=== PATIENT | female | born 1960 | race African-American/Black ===

== ENCOUNTER 2019-06-18 20:25 | Inpatient (IN) | payer OTHER ==
[~2019-06-18] VITALS: Ht 167.6 cm; Wt 79.0 kg
--- NOTE | ~2019-06-18 | EKG ---
[facility] [place] [address] ELECTROCARDIOGRAM REPORT Name: CHERELLELILIYA Room #: [facility] ADM IN M.R.#: [id number] Admission: 06/18/19 Attend Phys: John Watts DO Discharge: Date of : 56 Report #: [id number] THIS REPORT FOR: cc: FAM - No family physician/PCP FAM - No family physician/PCP Kalyn Mccain MD ~ THIS REPORT FOR: //name// [facility] Test Date: 2019-06-19 Test Time: 17:19:59 Pat Name: LILIYA VILLARREAL Department: Room: [facility] Gender: F Plumbing And Heating Contractor: Sal PEACE : 1960 Requested By: John Watts Order Number: [id number] MD: Measurements Intervals [place] Rate: 65 P: 54 MT: 127 QRS: -8 QRSD: 109 T: 45 QT: 400 QTc: 416 Interpretive Statements Sinus arrhythmia RSR' in V1 or V2, right VCD or RVH Left ventricular hypertrophy No previous ECG available for comparison Electronically Signed On 06-20-2019 7:58:33 SCALDER by Adarsh Piper [email or web address] By: 18 18 Epiphany Epiphany, /EB
[2019-06-18] MEDS ORDERED: FENTANYL1 EAC2 TRANSDERM (23:26)
[2019-06-18] MEDS ORDERED: FUROSEMIDE 40 M40 MG PO (23:27)
[2019-06-18] MEDS ORDERED: LACTULOSE10 GM/152 PO (23:30)
[2019-06-18] MEDS ORDERED: LORAZEPAM 1 MG T1 MG PO (23:31)
[2019-06-18 23:40] VITALS: BP 115/67
[2019-06-18] MEDS ORDERED: PREDNISONE 5 MG5 M1 PO (23:57)
[2019-06-18] MEDS ORDERED: K-DUR 20 MEQ T20 MEQ PO (23:57)
[2019-06-18] MEDS ORDERED: OXYBUTYNIN 5 MG5 M2 PO (23:59)
[2019-06-19] MEDS ORDERED: TRAZODONE HCL50 MG PO (00:01)
[2019-06-19] MEDS ORDERED: MIRALAX119 GM PO (00:02)
[2019-06-19] MEDS ORDERED: HALDOL 0.5 MG0.5 MG PO (00:03)
[2019-06-19] MEDS ORDERED: DRIZALMA SPRINK30 MG PO (00:04)
[2019-06-19 00:20] VITALS: BP 115/67
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
--- NOTE | 2019-06-19 03:50 | NUR ---
PATIENT IS FINALLY SLEEPING. NO CALLING OUT AT THIS TIME. BED IN LOW POSITION AND BED ALARM ON. CONTINUING TO MONITOR.
[2019-06-19 06:25] LABS: CALCIUM 8.7 mg/dL (8.5-10.1); CREATININE 0.7 mg/dL (0.6-1.0); MAGNESIUM 1.5 mg/dL (1.8-2.4); POTASSIUM 3.7 mmol/L (3.5-5.1)
[2019-06-19 07:09] LABS: FOLIC ACID 17.1 ng/mL (8.6-58.9); TSH 2.326 uIU/mL (0.358-3.740)
[2019-06-19 08:00] VITALS: BP 110/74
[2019-06-19 09:06] VITALS: BP 110/74
--- NOTE | 2019-06-19 14:10 | NUR ---
Nutrition: pt admitted with neurocognitive disorder with behavioral disturbance/aggression to H unit. Notified of low varun score. Pt new admit last night. Refused breakfast, ate a little lunch. Nsg reports he thinks she will drink juice so will offer ensure clear on all trays. No weight hx available. BMI 29, overweight status. No wasting observed. Does have healed venous stasis ulcer on her king. NH3 76, on lactulose. RD will monitor nutritional parameters for intervention need but consider low risk at present.
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
--- NOTE | 2019-06-19 17:24 | NUR ---
Assumed care of patient this am. Patient is difficult to understand when speaking. Patient ambulates with a wheel chair. Patient is very suspicious, and believes that this establishment is trying to kill her. Patient is noncompliant with medications. Patients affect is tense and flat. Patient refused her medications today. Patients assessment shows clear breath sounds, active bowel sounds, and s1 s2 heard with auscultation. Patient reports seeing family members in her room. Patient also reports that the devil is here. We will continue to monitor.
[2019-06-19 19:15] VITALS: BP 144/72
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
--- NOTE | 2019-06-20 04:24 | NUR ---
ASSUMED CARE OF THIS PATIENT FOR WAX SPECIALIST AT 1900. MOOD AND AFFECT LABILE. QUITE PARANIOD. VISUAL HALLUCINATIONS. THINKS THERE ARE PEOPLE IN HER ROOM WHO INTEND TO HARM HER. REFUSED ALL EVENING MEDS EVEN WITH MUCH ENCOURAGEMENT. SLEPT THROUGH MUCH OF NIGHT. ONCE IN A WHILE WOULD CRY OUT IN HER SLEEP. WILL CONTINUE TO MONITOR
[2019-06-20 07:30] VITALS: BP 121/61
--- NOTE | 2019-06-20 07:30 | NUR ---
Assumed care of patient this am. Patient up in a wheelchair. Patient appears to be seeing people in her room and states in a whisper "Can you see the people on my bed?" Patient is very labile. Patient refused all of her meds and states that the RN is "trying to kill me with fake pills". Patients assessment shows clear breath sounds, active bowel sounds, and s1 s2 heard with auscultation. Patient has yelling behaviors intermittently. Patient denies pain. Will continue to monitor.
--- NOTE | 2019-06-20 07:59 | EKG ---
[address] [address] ELECTROCARDIOGRAM REPORT Name: LILIYA VILLARREAL Room #: [facility] ADM IN M.R.#: [id number] Admission: 06/18/19 Attend Phys: John Watts DO Discharge: Date of : 56 Report #: [id number] THIS REPORT FOR: //name// [facility] Test Date: 2019-06-19 Test Time: 17:19:59 Pat Name: LILIYA VILLARREAL Department: Room: [facility] Gender: F Solar Sales Representative: Sal PEACE : 1960 Requested By: John Watts Order Number: [id number] MD: Adarsh Piper Measurements Intervals [place] Rate: 65 P: 54 IA: 127 QRS: -8 QRSD: 109 T: 45 QT: 400 QTc: 416 Interpretive Statements Sinus arrhythmia RSR' in V1 or V2, right VCD or RVH Left ventricular hypertrophy No previous ECG available for comparison Electronically Signed On 06-20-2019 7:58:33 METAL ORGAN PIPE MAKER by Adarsh Piper [email or web address] <ELECTRONICALLY SIGNED> By: Adarsh Piper MD 06/20/19 0758 [id number] [id number] Adarsh Piper MD /EPI
[2019-06-20 08:00] VITALS: BP 121/61
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
[2019-06-21 07:55] VITALS: BP 117/77
[2019-06-21 08:30] VITALS: BP 117/77
--- NOTE | 2019-06-21 08:34 | NUR ---
PT REFUSING MEDS THIS AM, ANOTHER NURSE ENCOURAGED HER TO TAKE HER MEDS FOR HER LEGS THAT HAVE +3 EDEMA TO LLE. PT AGREED TO TAKE MEDS FOR THIS NURSE. MEDS CRUSHED AND PUT IN PUDDING PT TOOK WITHOUT ANY ISSUES. ATTEMPTED TO CRUSH K AND VIT D. PT SPIT OUT ON TABLE. PT PLACED IN RECLINER AND FEET ELEVATED. PT HAS EDEMA +3 TO LLE AND +2 TO RLL.
--- NOTE | 2019-06-21 12:38 | NUR ---
PT DID TAKE MEDS WITH ENCOURAGEMENT FROM ANOTHER NURSE. PT TOOK MEDS WHOLE. NO PROBLEMS.
--- NOTE | 2019-06-21 14:29 | NUR ---
SEEMS LIKE PT YELLS AT AND STATED GET AWAY FROM ME. WHEN PT IS APPROACHED BY PT DOESN'T YELL AT THEM. SHAUNNA CLEANING WAS FOUND IN CHAIR WHEN PT GOT UP TO BSC FOR SMALL PEBBLE BM. PT GETTING READY TO GET US OF LE.
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
[2019-06-22 07:10] VITALS: BP 90/56
[2019-06-22 07:46] LABS: CALCIUM 9.2 mg/dL (8.5-10.1); CREATININE 0.7 mg/dL (0.6-1.0); POTASSIUM 3.9 mmol/L (3.5-5.1)
--- NOTE | 2019-06-22 08:30 | NUR ---
PT RESTING AT THIS TIME. PT DIDN'T HAVE ANY SLEEP YESTERDAY EVENING. PT VS STABLE.
[2019-06-22 09:00] VITALS: BP 90/56
--- NOTE | 2019-06-22 11:59 | NUR ---
SW sent updates to [facility] [phone]. SW team will continue to follow pt during her stay on this unit.
--- NOTE | 2019-06-22 13:48 | NUR ---
PT RESTING IN BED AT THIS TIME. PT HAS NOT HAD BREAKFAST OR LUNCH.
--- NOTE | 2019-06-22 15:30 | NUR ---
PT IS UP AT THIS TIME, PT HAD X2 INCON. LARGE URINE AND HAVE SOME MUCOUS IN HER MOUTH.
--- NOTE | 2019-06-22 15:51 | NUR ---
PT MEDS CRUSHED AND PUT IN APPLESAUCE. PT WAS SAYING SHE WASN'T TAKEN THAT SHIT THAT SHE TAKES PILLS NOT CRUSHED. TOOK SOME APPLESAUCE OUT AND GOT A NEW SPOON. PT TOOK MEDS AND HAD WHOLE APPLESAUCE. PT RAISE HAND TOWARDS NURSE SAYING GET AWAY FROM ME.
--- NOTE | 2019-06-22 16:13 | NUR ---
PT REQUEST A LAXATIVE, WHEN GIVING PT LAXATIVE PT DIDN'T WANT IT. PT WANTED TO TAKE IT HERSELF. PT DID TAKE MOM 10ML PO IN LITTLE MED CUP AND DRANK IT.
--- NOTE | 2019-06-22 17:00 | NUR ---
PT DID HAVE YELLOW THICK SPUTUM IN CUP. PT SMILING AT NURSE AND LAUGHING. PT STATED SHE WAS READY TO GO TO DINNING ROOM. PT ABLE TO SWING HER LEGS AROUND AND GET UP WITH ASSIST TO W/C. PT NOT SCREAMING AT THIS TIME OR NOT COMBATIVE.
[2019-06-22 19:51] VITALS: BP 120/77
[2019-06-22 21:45] VITALS: BP 120/77
--- NOTE | 2019-06-23 01:42 | NUR ---
PATIENT VERY LABILE IN MOODS TONIGHT. SHE DID EAT ICECREAM WITH HER MEDS UNKNOWINGLY CRUSHED IN IT FOR HS SNACK. PATIENT HAD INCONTINENT CARE DONE AND ASSISTED TO BED. PATIENT DOES NOT LIKE TO BE TOUCHED OR BOTHERED. SHE DOES HAVE CHRONIC BACK PAIN. SHE FOUGHT WHEN THEY WERE TRYING TO TAKE HER VITALS TONIGHT. HER PULSE WAS 123. CHECKED PULSE AGAIN AFTER RESTING IN BED FOR A WHILE AND SHE AWOKE AND YELLED FOR ME TO GET OUT. HER PULSE WAS 90. PATIENT HAD ALOT OF THICK MUCUS AFTER EATING THE ICE CREAM AND WAS SPITTING OUT THICK CLEAR MUCUS WHEN IN BED. I RAISED HOB FOR HER AND GAVE HER DRINK OF WATER. HER LUNGS ARE CLEAR BUT DIMINISHED AND SHE HAS LOOSE CONGESTION IN HER THROAT AREA. HER LEFT LE IS WITH EDEMA 4+. HER RIGHT LE IS 3+. PATIENT YELLS OUT OFF AND ON FOR WHAT SHE WANTS AND THEN WHEN YOU GO TO GIVE HER WHAT SHE WANTS SHE YELLS FOR YOU TO GET OUT OF ROOM AND LEAVE HER ALONE. PATIENT HAS FENTANYL PATCH TO LEFT MID BACK FOR HER CHRONIC BACK PAIN. INCONTINENCE CHECKS BEING DONE. PATIENT IS COMBATIVE WITH CARES. SHE IS VERY ANGRY AND HOSTILE AND CAN BE VERBALLY ABUSIVE. BED IN LOW POSITION AND BED ALARM ON. NO SIGNS OF DISTRESS OR SOA. WILL CONTINUE TO MONITOR.
--- NOTE | 2019-06-23 06:32 | NUR ---
PATIENT VOMITED UP WHAT LOOKS LIKE HER SUPPER FOOD. CLEANED PATIENT UP AND CHECKED VITALS AGAIN. T 99.1AXILLARY, P90 R18 BP 110/57 02 96%. NO RESPIRATORY DISTRESS. PRODUCING LOTS OF SALIVA. PROBABLY FROM NAUSEA. WILL GIVE ZOFRAN PRN IF PATIENT WILL TAKE. PT TAKING SIP OF WATER AND KEEPING IT DOWN. LUNGS CLEAR BUT DIMINISHED. HOB UP. CALLED DAYNE GAMBLE AND NOTIFIED HER OF ABOVE. NO NEW ORDERS AT THIS TIME. PATIENT STILL COMBATIVE WITH CARES. EVS CALLED TO MOP AND SANITIZE FLOOR AND BED WHERE PT VOMITED. KEEPING PT COMFORTABLE.
[2019-06-23 10:00] VITALS: BP 121/75
[2019-06-23 10:36] VITALS: BP 121/75
[2019-06-23 12:35] LABS: HEMATOCRIT 34.4 % (37.0-47.0); HEMOGLOBIN 11.7 gm/dL (12.0-15.0); MCH 30.9 pg (26.0-34.0); MCV 90.8 fL (80.0-100.0); RBC 3.78 mil/uL (4.20-5.00); RDW 13.9 % (10.5-14.5); WBC 8.1 thou/uL (4.0-11.0)
[2019-06-23 12:41] LABS: CALCIUM 8.8 mg/dL (8.5-10.1); CREATININE 0.8 mg/dL (0.6-1.0); POTASSIUM 3.9 mmol/L (3.5-5.1)
--- NOTE | 2019-06-23 16:19 | NUR ---
assumed care at 0700. Pt sleepingin the room. Has vomited several times through out the day. The vomit has bile green. Dr. Jeri Watts aware of what is going on. New medication ordered for nausea and vomiting. Iv started and fluid running at 100mls/hr. Pt NPO at hte moment to rest her bowels. Blood labs ordered and the ddoctor went through them with the nurse. Noo more new orders. Will continue to observe and get back to the doctor before end of the shift. Patient relaxing in bed. Pt gets so agitated by care givers no matter what you are doing to her. She screems out loud when asking for somehting and she is verbally abusive to the Rn all day. Will continue to monitor.
[2019-06-23 19:38] VITALS: BP 133/72
--- NOTE | 2019-06-24 04:42 | NUR ---
1000ml of fluids completed. Dr kelly ordered to discontinue iv placement due to potential removal by pt. prn meds given im. pt has been on clear liquids diet and is tolerating fliuds well. no emesis yet as of the time of this note. pt is incont and was changed. pt slept well until about 0200 when pt suddenly woke to use the bathroom and started sreaming. pt was changed but kept on screaming for about 15mins after which she fell back asleep and has been sleeping since then. no s/s of distress. hob elevated. will cont to monitor
[2019-06-24 09:27] VITALS: BP 138/78
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
--- NOTE | 2019-06-24 11:41 | NUR ---
AT 1132 OLANZAPINE7.5 MG GIVEN IM FOR AGITATION. PATIENT REFUSED ROUTINE PO MED. PATIENT CONTINUES TO SCREAM AND YELL. H20 OFFERED STATES "YOU ARE TRYING TO POISON ME" WILL CONTINUE TO OFFER FLUIDS.
--- NOTE | 2019-06-24 14:43 | NUR ---
1430 ATIVAN 1MG IM GIVEN FOR AGITATION. WHEN FLIGHT TEACHER EXPLAINED MEDICATION TO PATIENT, PATIENT SAID OK. APPLE JUICE 118ML GIVEN TO PATIENT, NO NAUSEA OR VOMITING. PATIENT REQUEST WASH RAGS TO CLEAN UP REFUSES HELP. WILL CONTINUE TO MINITOR PATIENT FOR CHANGES IN CONDITION.
--- NOTE | 2019-06-24 16:34 | NUR ---
AT 1600 PATIENT RESTING QUIETLY WITH EYES CLOSED IN CHAIR IN ROOM. WILL CONTINUE TO MONITOR FOR CHANGES.
[2019-06-24 20:00] VITALS: BP 116/55
--- NOTE | 2019-06-25 07:31 | NUR ---
PROGRESS PT UP IN RECLINER ALL NIGHT YELLING OUT AT TIMES AND SLEEPING ON AND OFF. REFUSED ALL MEDS HAD ONE BITE OF ICE CREAM WITH SOME OF HER MEDS IN IT. PT IS ABLE TO MOVE RECLINER AROUND WITH HER FEET CONTINUES TO BE A FALL RISK. FALL PRECAUTIONS IN PLACE.
[2019-06-25 07:54] VITALS: BP 135/69
[2019-06-25 09:20] VITALS: BP 135/69
--- NOTE | 2019-06-25 09:47 | NUR ---
PT REFUSED AM MEDS AT THIS TIME. PT STATED SHE DON'T TAKE THOSE PILLS. ATTEMPTED TO GIVE MEDS CRUSHED IN CREAM OF WHEAT, PT REFUSING CREAM OF WHEAT. PT YELLING OUT IN DINING ROOM. PT IN RECLINER CHAIR.
--- NOTE | 2019-06-25 10:00 | NUR ---
PT RECIEVED HALDOL 5MG IM AT THIS TIME.
--- NOTE | 2019-06-25 12:15 | NUR ---
PT WANTING HER MEDICATION. SHOWED PT HER LORAZEPAM. PT DID TAKE MED WHOLE WITH APPLEJUICE. PT IN ROOM DUE TO YELLING OUT IN DINING ROOM.
--- NOTE | 2019-06-25 15:04 | NUR ---
PT YELLING AT PEOPLE NOT HERE. PT INTERUPTING GROUP TIME. I HAD LOTION ON MY COW AND PT WANTED TO HAVE SOME. PT USE TO RUB HANDS. PT LIKES TO LISTEN TO SOFT JAZZ MUSIC, NOT YELLING MUCH. DR. Claudia FERRIS.
--- NOTE | 2019-06-25 15:26 | NUR ---
ADM LORAZEPAM 1.5MG IM TO RT DELTOID. PT DIDN'T HAVE ANY ISSUES WITH SHOT ADM.
--- NOTE | 2019-06-25 15:32 | NUR ---
ANANYA contacted [facility] with [facility] to arrange for pt to discharge either Tue or . Craigmont was busy so ANANYA asked for a return call with the medical secretary receptionist. SW team will continue to follow pt during her stay on this unit.
[2019-06-25 20:26] VITALS: BP 164/89
[2019-06-25 21:30] VITALS: BP 164/89
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
[2019-06-26 08:40] VITALS: BP 149/85
--- NOTE | 2019-06-26 09:36 | NUR ---
PT IN ROOM WANTING TO GET CLEANED UP. PT VERY DEMANDING ABOUT HER CARE. PT WANT HER PERIAREA CLEANED AND BOTTOM, TOES AND FEET. PT WAS INCON. IN BED. PT GOT UP TO CHAIR. PT LEFT LOWER EXT IS NOT SWOLLEN AND SKIN HAS WRINKLES NOW. PT ABLE TO GET UP FROM BED AND TRANSFER TO RECLINER. PT TOOK WHITE PILL, LORAZEPAM FOR THIS MULTICUT LINE OPERATOR WITH APPLE JUICE. PT WANTING X2 APPLE JUICE AND WATER THIS AM.
[2019-06-26 09:40] VITALS: BP 149/85
--- NOTE | 2019-06-26 10:07 | NUR ---
Followup: Pt has been delusional, aggressive and yelling at staff. Medication being addressed. Intake has declined due to behavior and refusing some meals past several days. Ammonia level decreased then has increased again-on lactulose. Continue to offer supplement and will follow intake for improvement again as behaviors improve. No new wt since 06/19. low nutrition risk.
--- NOTE | 2019-06-26 11:45 | NUR ---
PT VOMITED BILE AND MUCOUS OUT IN DINNING ROOM. PT WHEELED BACK TO ROOM. PT WANTING ICE WATER, PT WANTING PAPER TOWEL IN BUCKET. PT STATED THAT THE SPIT IN THE BUCKET WAS NOT HERS. THIS ASSISTANT FACILITY MANAGER CLEANED BUCKET AND PUT FRESH PAPER TOWELS IN BOTTOM. GAVE PT TISSUES AND PT SAID IT WAS THE WRONG KIND OF TISSUE AND THROW IT ON THE FLOOR. PT YELLING AT INDIVIDUALS NOT THERE. BEING DEMANDING TO NURSE.
--- NOTE | 2019-06-26 12:31 | NUR ---
ADM MILK OF MAG FOR BOWELS. PT STATED SHE FIRST DIDN'T WANT TO TAKE IT AT FIRST. ENCOURAGED PT THAT IT WAS FOR HER BOWELS. PT DID TAKE THE MOM WITHOUT ANY ISSUES.
--- NOTE | 2019-06-26 17:48 | NUR ---
PT DIDN'T WANT GRAVY ON HER MASHED POTATOES. PT ATE POTATOES AND DRANK ENLIVE AND 2 APPLE JUICE. PT ALSO HAD SOME COFFEE. PT HAD LARGE VOID IN BSC. PT TRIED TO HAVE BM, PT UNSUCCESSFUL WITH BM. PT DID BELCH. TOLD PT THAT SHE HAS ORDER OF FLEETS ENEMA. PT STATED THAT WAS NOT FROM HER DR. PT STATED THAT WAS BULLSHIT. PT STATED SHE WILL TAKE IT WHEN SHE LYES DOWN TONIGHT, PT UP IN CHAIR.
--- NOTE | 2019-06-26 22:03 | NUR ---
PATIENT HAS BEEN UP IN RECLINER IN DINING ROOM THIS EVENING. SHE HAS BEEN YELLING OUT AND COMBATIVE. SHE REFUSED HER PO MEDS. SHE THREW APPLEJUICE ON A LINE THERAPIST. SHE WILL NOT ANSWER QUESTIONS ABOUT IF SHE IS IN PAIN. SHE SWINGS AT STAFF AND YELLS TO GO AWAY AND LEAVE HER ALONE. UNABLE TO GIVE PATIENT ENEMA SO FAR TONIGHT D/T COMBATIVE/AGGRESSIVE BEHAVIORS. SHE DID DRINK 3 APPLE JUICES TONIGHT. DAYNE GAINES NOTIFIED THAT PATIENT DID NOT TAKE HER MEDS TONIGHT. SHE GAVE NEW ORDER FOR HALDOL AND ALSO FOR ATIVAN 2MG IM Q4HRS ANXIETY/AGGITATION. DID NOT PUT PRN ORDER IN FOR THE HALDOL SINCE LOOKED AGAIN AND THERE WAS ALREADY ONE IN [place] FROM DR MAURICIO. PATIENT WAS GIVEN HALDOL 10MG IM AND ATIVAN 2MG IM IN RIGHT DELTOID. THIS TOOK 3 PEOPLE TO HOLD HER. 2 SECURITY GUARDS CALLED TO HELP PUT HER IN BED BECAUSE SHE WAS COMBATIVE AND YELLING AND HITTING/PUNCHING. PATIENT HAD INCONTINENCE CARES DONE AND WAS MADE COMFORTABLE SHE WOULD ALLOW US. SHE YELLS OUT AND TALKS TO SELF OFF AND ON AND BACK TO SLEEP. BED IN LOW POSITION AND BED ALARM ON. PATIENT RESTING.
[2019-06-26 22:34] VITALS: BP 149/85
--- NOTE | 2019-06-27 02:12 | NUR ---
PRN ATIVAN 2 mg. and HALDOL 5 mg. given IM for agitation and anxiety. No results noted from enema at time of injection.
[2019-06-27 09:09] VITALS: BP 156/85
--- NOTE | 2019-06-27 15:47 | NUR ---
Date of Admission: 06/18/19 Date of Activity Therapy Assessment: 06/22/19 Activity Goal: Development of trusting social relationships Initial Goal: 1 Group activity/day Weekly progress towards goal: Did not achieve goals Group participation level: None Behaviors observed: Patient's behaviors include yelling out at patients and staff, making threats, and at times swinging to hit them. Patient does not trust various staff and states they are, "trying to kill me." She has been unable to participate in groups d/t these behaviors. Plan: No change towards goal
--- NOTE | 2019-06-27 15:59 | NUR ---
1500 PATIENT REFUSED SCHEDULED PO ATIVAN. RIPSAWYER ATTEMPTED TO EXPLAIN TO PATIENT THAT IF PO IS NOT TAKEN, ATIVAN IM IS ORDERED. PATIENT STARTS TO YELL STATING "I WILL NOT TAKE THAT YELLOW PILL". ATIVAN 1MG IM GIVEN.
--- NOTE | 2019-06-27 16:48 | NUR ---
0700 ASSUMED CARE OF PATIENT. PATIENT SLEEPING AT THIS TIME IN BED. PATIENT CONTINUED TO SLEEP TILL 1124. PATIENT TELLING AT THIS TIME. OUT TO DAYROOM FOR LUNCH SITTING UP IN WC. PATIENT REFUSED PO MEDICATION. ATIVAN 1MG IM GIVEN PER DR ORDERS. PATIENT REFUSES TO ANSWER QUESTIONS AND STARTS YELLING AT LINSEED CAKE TRIMMER. LUNG SOUNDS CLEAR, NO C/O PAIN DENIES NEEDS REQUEST THAT LINSEED CAKE TRIMMER STAY AWAY FROM PATIENT.
--- NOTE | 2019-06-27 18:45 | NUR ---
PATIENT SITTING IN WC IN DAYROOM WITH EYES CLOSED AT THIS TIME.
[2019-06-27 19:47] VITALS: BP 133/70
--- NOTE | 2019-06-28 04:57 | NUR ---
ASSUMED CARE OF THIS PATIENT AT 1900 FOR SUEDE BRUSHER. SHE WAS SLEEPING IN CHAIR IN DAYROOM AT THAT TIME. REFUSED PO MEDS AND RECIEVED IM ATIVAN ORDERED. UNCOOPERATIVE WITH ASSESSMENT PROCESS. DID DENY PAIN THIS EVENING. NO C/O. NO APPARENT DISTRESS. WILL CONTINUE TO MONITOR
[2019-06-28 09:25] VITALS: BP 107/64
[2019-06-28 10:56] VITALS: BP 107/64
--- NOTE | 2019-06-28 11:13 | NUR ---
ASSUMED CARE AT 0700 THIS MORNING. SHE GOT UP IN W/C FOR MEALS ON THE UNIT. SHE CONTINUES TO YELL AT THE VOICES SHE HEARS AND THE DEVIL SHE SEES. SHE REFUSED MORNING MEDICATIONS TELLING THIS ONION TOPPER SHE WOULD RATHER HAVE THE SHOT. SHOT PREPARED AND GIVEN TO PT. (JOSY). SHE CONTINUED TO YELL OUT FOR A WHILE, BUT DID BECOME SOMEWHAT CALMER AFTER ABOUT 20 MINUTES. SHE HAS NOT BEEN STRIKING OUT BEHAVIOR NOTED THIS MORNING. SHE STATES SHE SEES THE DEVIL AND YELLS BACK AT HIM.
--- NOTE | 2019-06-28 17:25 | NUR ---
ANANYA contacted [facility] and spoke with Natalie (admin) who said pt is on a long acting drug called Invega. She was wondering if the psych doctor could increase her dosage. However, she mentioned pt did well with Haldol when she took it orally. She said pt is okay to return on 07/04/19. ANANYA contacted psych doctor who said he will change pt's meds to include a Haldol regularly scheduled IM. SW team will continue to follow pt during her stay on this unit.
[2019-06-28 19:42] VITALS: BP 131/89
--- NOTE | 2019-06-28 20:01 | NUR ---
Patient has been screaming and disturbing mileau since start of shift. Patient assisted to the bathroom with staff assist x3. Patient verbally aggressive and threatening to staff. Patient assisted to bed and provided quiet environment. Patient continues to yell and be disruptive and cursing. MD notified. Order obtained for STAT IM Haldol and Ativan. Medication provided. states that if patient is awake for scheduled HS medication, it is OK to provide those medications also.
--- NOTE | 2019-06-29 04:39 | NUR ---
ASSUMED CARE OF THIS PATIENT AT 1900 FOR FRONT DESK AGENT. HAS BEEN TALKING AND YELLING AT HER HALLUCINATIONS. PRN ORDER WAS EFFECTIVE. ROUTINE NIGHT MEDS WERE REFUSED AND PATIENT WAS SLEEPING, SO ATIVAN HELD. APPEARS TO HAVE SLEPT THROUGH THE NIGHT. UNCOOPERATIVE WITH ASSESSMENT PROCESS. NO C/O PAIN THIS SHIFT. WILL CONTINUE TO MONITOR
[2019-06-29 09:50] VITALS: BP 113/71
[2019-06-29 12:54] VITALS: BP 113/71
--- NOTE | 2019-06-29 13:04 | NUR ---
ASSUMED CARE AT 0700 THIS MORNING. SHE WAS IN BED WHEN SHIFT BEGAN. SHE WAS GOTTEN UP BY [employer] LAW CLERK'S. SHE REFUSED ORAL MORNING MEDICATIONS. SHE RECEIVED IM HALDOL 5 MG AND ATIVAN 1.5 MG PO IM. SHE ACCEPTED THIS WITHOUT PROBLEMS NOTED. AT LUNCH, SHE DID NOT LIKE THE SANDWICH THE KITCHEN SENT UP. SHE STARTED REQUESTING CHEERIOS, MILK SO SHE COULD EAT THAT. SHE ATE A BOWL OF CEREAL WITH MILK. THE WAS CORDIAL ABOUT THAT AND HANDED THIS RN THE EMPTY CONTAINERS POLITELY. SHE CONTINUES TO YELL FROM TIME TO TIME BUT NOT CONTINOUSLY.
--- NOTE | 2019-06-29 14:21 | NUR ---
ANANYA faxed a copy of an order from hospice to [facility]. The plan is still for pt to discharge on 07/04 @1100. SW team will continue to follow pt during her stay on this unit.
--- NOTE | 2019-06-29 22:49 | NUR ---
Care assumed of patient at 1915: Nurse entered room to introduce self and complete nursing assessment. Patient started to scream "F You, get out". Nurse brought apple juice which is a favorite of patient. Patient yelled "leave the juice, you go". No s/s of pain or discomfort. Nurse left room, patient intermittently yelling mumbled words but was not continuous. Attempted to have another nurse enter room to speak with patient and she told them to get out also. Nurse entered room later with HS medications and a snack. Patient demanding that she get up because she missed breakfast and it is nurses fault for not feeding her. Patient offered snack which she hit out of nurses hand. Patient shown HS medication. She attempted to hit it from nurses hand but was not successful. Patient educated as much as possible about need to take medications to be able to sleep, to feel better, to be able to go home. Non were effective. Nurse then reported that if she does not want to take her HS pills, nurse would have to give her a shot. Patient demanded to see the doctor. Oriented that it is night time and the doctor is not here but he did order the medications. Patient argumentative, suspicious look, growling rambling voice. Nurse administered PRN injection with staff x2. Patient was not combative during injection. Patient continued to be disruptive, yelling, cursing, throwing brief on the floor. Staff attempted to provide mello care when patient started to kick staff. Patient provided clean wipes and a new brief which she was able to complete independently in bed. DAYNE Candelaria, notified of continued behaviors despite IM injection administered. Order obtained for Ativan 1mg and Haldol 5mg IM. Medication provided with staff x2. Patient continues to yell from her room at this time.
[2019-06-30 08:20] VITALS: BP 144/87
--- NOTE | 2019-06-30 08:39 | NUR ---
PT SITTING OUT IN DINING ROOM IN W/C. PT LIKES WASHRAG OVER HER HEAD. PT YELLS OUT AT CERTAIN STAFF TO GET AWAY FROM HER. PT REFUSED XIFAZAN MED, DID TAKE LORAZEPAM MED. PT PUT HALDOL PILLS IN WATER CUP AND SUGAR PACKS ON TOP OF WATER TO HIDE MED.
[2019-06-30 08:40] VITALS: BP 144/87
--- NOTE | 2019-06-30 08:45 | NUR ---
PLACED HALDOL PILLS IN APPLEJUICE AND MIXED WITH ICE. PT DRANK WITHOUT ANY ISSUES. PT WANTING TO HAVE CORN FLAKES, PT DID EAT HALF OF CHERRIOS.
[2019-06-30 09:12] VITALS: BP 144/87
--- NOTE | 2019-06-30 14:53 | NUR ---
PT STATED SHE WANTED ICE CREAM, PUT CRUSHED MED. ON SPOON ON TOP OF ICE CREAM. ICE CREAM HAD IN ICE CREAM CUP AND PT DIDN'T TRUST IT. THIS NURSE STATED THAT THE ICE CREAM WAS LOOSENED TO SOFTEN IT. PT DID EAT ICE CREAM AND MED ON SPOON.
[2019-06-30 20:54] VITALS: BP 116/78
[2019-06-30 22:01] VITALS: BP 116/78
--- NOTE | 2019-06-30 22:32 | NUR ---
1850 RESUMMED CARE FROM DAY SHIFT, PATIENT IN DAY ROOM CALM COOPERATIVE. PATIENT LIKES TO DRINK HOT TEA AND ICE CREAM, PATIENT TOOK MEDICATION WITHOUT INCIDENCE. PATIENT WENT TO BED WITHOUT PROBLEMS, PATIENT'S EDEMA IN LEFT LEG IS 3+ EDEMA AND RIGHT LEG 2+. WILL CONTINUE TO MONITOR PATIENT FOR BEHAVIORS AND SAFETY.
[2019-07-01 06:20] LABS: HEMATOCRIT 36.4 % (37.0-47.0); HEMOGLOBIN 12.1 gm/dL (12.0-15.0); MCH 29.9 pg (26.0-34.0); MCHC 33.2 g/dL (28.0-37.0); MCV 90.1 fL (80.0-100.0); PLATELET COUNT 175 thou/uL (150-400); RBC 4.05 mil/uL (4.20-5.00); WBC 7.4 thou/uL (4.0-11.0)
[2019-07-01 06:46] LABS: ABSOLUTE NEUTROPHILS 4.4 thou/uL (1.4-8.2); PLATELET ESTIMATE NORMAL
[2019-07-01 07:00] LABS: ALBUMIN 2.5 g/dL (3.4-5.0); CALCIUM 9.3 mg/dL (8.5-10.1); CREATININE 0.7 mg/dL (0.6-1.0); MAGNESIUM 1.4 mg/dL (1.8-2.4); TOTAL PROTEIN 6.6 g/dL (6.4-8.2)
[2019-07-01 07:34] LABS: TSH 1.356 uIU/mL (0.358-3.740)
[2019-07-01 08:30] VITALS: BP 124/89
--- NOTE | 2019-07-01 08:30 | NUR ---
PT REFUSING EKG AT THIS TIME. PT TELLING THE TECH SHE HATES WHITE PEOPLE AND NOT LISTENING TO REASON.
--- NOTE | 2019-07-01 08:40 | NUR ---
PT TOOK MEDS CRUSHED IN APPLE JUICE.
--- NOTE | 2019-07-01 11:40 | NUR ---
PT TOOK RIFAXIMIN IN ICE CREAM. PT ALLOWING THIS CABLE TELEVISION LINE TECHNICIAN TO GIVE HER A SPOONFUL OF ICE CREAM AND EATING REST OF ICE CREAM.
--- NOTE | 2019-07-01 11:55 | NUR ---
US WAS HERE TO DO CHECK TO RT LEG. PT SWATTING AT US TECH AND HIT HER HAND. ASSISTED WITH TRYING TO PULL DOWN PANTS FOR US, PT REFUSING TO HAVE PANTS DOWN OR US TECH TO PERFORM TEST.
--- NOTE | 2019-07-01 14:22 | NUR ---
NOTIFIED DR. HEREDIA ABOUT PT REFUSING THE US TEST. STATED TO NOTIFIY FAMILY TO LET THEM KNOW SHE IS REFUSING TEST.
--- NOTE | 2019-07-01 14:51 | NUR ---
PT YELLING AND INTERUPTING GROUP. PT TOOK MEDS IN APPLEJUICE. PT WANTING CHURCHS CHICKEN. PT SMILING.
--- NOTE | 2019-07-01 16:00 | NUR ---
PT WANTING GRAHMN CRACKERS AND PEANUT BUTTER. PT ABLE TO EAT WITHOUT ANY ISSUES.
[2019-07-01 19:56] VITALS: BP 135/102
[2019-07-01 20:30] VITALS: BP 122/68
[2019-07-01 21:58] VITALS: BP 122/68
--- NOTE | 2019-07-01 22:32 | NUR ---
PATIENT WAS GIVEN HER MEDS CRUSHED IN APPLE JUICE THIS EVENING. SHE DRANK 3/4 OF IT. HER BED WAS REMADE WITH FRESH SHEETS AND PATIENT HAD 2 LARGE BMS'S THAT WERE FORMED AND SOFT. SHE DID HAVE SOME EMESIS OF CLEAR MUCUS WITH LIGHT BROWN THAT LOOKED LIKE POSSIBLE FOOD FROM DINNER. PATIENT HAS BEEN DRINKING APPLEJUICE AND WATER TONIGHT. SHE HAS BEEN DEMANDING AND SCREAMING OUT. THEN TELLING PEOPLE TO LEAVE WHEN THEY COME IN ROOM. PATIENT'S BP DIASTOLIC BP WAS 102 AT 1930 TONIGHT. RECHECKED BP IN ONE HOUR AT 2030 AND IT WAS 122/68. SHE DOES GET FUSSY AND YELLS WITH CARES. CALLED AND RECEIVED ORDERS FROM CAROLYNN FLORES NP D/T PATIENT STILL YELLING AND NOT SETTLING DOWN FROM BED. NEW ORDERS RECEIVED. ATIVAN 1MG, HALDOL 5MG, AND ZOFRAN 4MG IM GIVEN IM AROUND 2224. PATIENT HAS BEEN CARED TO AND REPOSITIONED FOR COMFORT. EMESIS BASIN WITH PATIENT. NOTHING SEEMS TO CALM HER. WILL CONTINUE TO MONITOR. BED IN LOW POSITION AND BED ALARM ON.
[2019-07-02 10:21] VITALS: BP 135/102
--- NOTE | 2019-07-02 11:19 | NUR ---
1115 RESUMMED CARE FROM OVERNIGHT SHIFT AT 0647, PATIENT IN DAY ROOM YELLING FOR SNACKS. PATIENT ATE BREAKFAST THEN SLAPPED MEDICATION OUT OF MY HAND, PATIENT GIVEN HALDOL 7.5 MG INJECTION. PATIENT STILL YELLS OUT LOUD AT TIMES, PATIENT IS REDIRECTABLE. PATIENT WILL POSSIBLY D/C BACK TO [facility] ON 07/04/19, WILL CONTINUE TO MONITOR PATIENT FOR SAFETY AND BEHAVIORS.
--- NOTE | 2019-07-02 13:15 | NUR ---
Date of Admission: 06/18/19 Date of Activity Therapy Assessment: 06/22/19 Activity Goal: Increase socialization/relationship development Initial Goal: 1 Group activity/day Weekly progress towards goal: Did not achieve goals Group participation level: None Behaviors observed: Patient continues to yell out and disrupt the milieu by using profanity and making threats. No participation at this time. Plan: No change towards goal
--- NOTE | 2019-07-02 13:50 | NUR ---
ANANYA faxed updates for pt to [facility]. ANANYA team will continue to follow pt during her stay on this unit.
--- NOTE | 2019-07-03 04:05 | NUR ---
ASSUMED CARE OF THIS PATIENT AT 1900 FOR COFFEE HOST. SHE WAS SITTING QUIETLY IN DAYROOM FOR A SHORT TIME, THEN BEGAN YELLING. REFUSING ALL CARES, INCLUDING PO MEDS, VITAL SIGNS. RECIEVED IM MEDS ORDERED. 6 HOURS LATER RECIEVED IM MEDS PRN DUE TO CONTINUED YELLING, KEEPING OTHERS AWAKE. RESISTIVE WITH CARES, BUT DID NOT STRIKE OUT AT STAFF. NO APPARENT PHYSICAL DISTRESS. WILL CONTINUE TO MONITOR
[2019-07-03 07:35] VITALS: BP 138/83
--- NOTE | 2019-07-03 08:59 | NUR ---
Nutrition status has now been indicated as high nutrition risk. See RD nutrition assessment
[2019-07-03 11:32] VITALS: BP 138/83
--- NOTE | 2019-07-03 14:34 | NUR ---
SW contacted [employer] and arranged transportation for pt to return to her facility tomorrow with picking belt operator time of 1100. Trip # is [id number]
[2019-07-03 20:00] VITALS: BP 115/77
--- NOTE | 2019-07-04 03:46 | NUR ---
ASSUMED CARE OF THIS PATIENT AT 1900 FOR HAM BONER. WAS SLUMPED OVER IN CHAIR IN DAYROOM, SLEEPING. DID ALLOW VS TO BE TAKEN THIS EVENING. REFUSED PO MEDSBEGAN SCREAMING LOUDLY IN DAYROOM AND RECIEVED BACKUP IM MEDICATIONS. DID CALM DOWN AND SLEEP IN CHAIR MUCH OF THE NIGHT. NO AGGRESSIVE BEHAVIORS NOTED THIS SHIFT. DOES NOT APPEAR TO RESPOND TO INTERNAL STIMULI. NO PHYSICAL CO. WILL CONTINUE TO MONITOR
[2019-07-04 09:13] VITALS: BP 109/73
--- NOTE | 2019-07-04 09:43 | NUR ---
ANANYA was informed by psych doctor that pt will d/c on Thursday 07/06. ANANYA rescheduled pt's [facility] for 07/06 @ 11am. Same trip number . SW team will continue to follow pt during her stay on this unit.
[2019-07-04 12:36] VITALS: BP 109/73
--- NOTE | 2019-07-04 12:43 | NUR ---
ASSUMED CARE OF PT. AT 0700 THIS MORNING. PT. SLEPT VERY LITTLE LAST NIGHT AND WAS UP IN HER W/C WITH A TOWEL OVER HER HAIR. SHE DOES NOT TELL ANYONE WHY SHE DOES THIS. SHE TOLD THIS EXCAVATOR BACKHOE OPERATOR SHE WANTED TYLENOL FOR GENERALIZED PAIN. WHEN THIS RN BROUGHT TYLENOL TO HER, SHE REFUSED TO TAKE MORE THAN ONE. SHE CONTINUES TO REFUSE PO MEDICATIONS REGULARLY. SHE RECEIVED A DECANOATE HALDOL AND ATIVAN IM THIS MORNING. SHE WAS QUIET IN THE MORNING. AT NOON SHE WAS CALLING PEERS A SON OF A BITCH AND YELLING DEMANDS TO STAFF AND PEERS. SHE YELLS FUCK THIS AND FUCK THAT TO PEOPLE WHO DO NOT DO SHE SAYS. SHE EATS BY HERSELF BUT IS UNABLE TO DO HER OWN ADL'S AND TOILET HERSELF.
[2019-07-04 19:39] VITALS: BP 135/78
--- NOTE | 2019-07-05 04:12 | NUR ---
Assumed care of pt @ 1900. Pt agitated at beginning of shift. Took medications crushed in chocolate ice cream but still needed a PRN injection of Haldol due to agitation. VSWNL. Health assessment with no abnormalities at present time. Ambulates via w/c. Denies SI/HI, but hard to understand speech pattern. Currently resting in bed with eyes closed. Will continue to monitor per protocol.
[2019-07-05 08:30] VITALS: BP 135/78
--- NOTE | 2019-07-05 08:39 | NUR ---
PT REFUSES AM MEDS MIXED IN APPLE JUICE. PT STATED SHE KNEW THAT MEDS WAS IN IT.
--- NOTE | 2019-07-05 10:51 | NUR ---
PT STATED SHE WANTED TEA AND WOULD TAKE HER MEDS. GAVE LORAZEPAM AND HALDOL WHOLE IN MED CUP. PT TOOK WITH ICE TEA.
[2019-07-05 13:16] VITALS: BP 137/86
--- NOTE | 2019-07-05 14:25 | NUR ---
ANANYA confirmed with Natalie that pt will be discharging to her facility tomorrow at 11am. ANANYA team will continue to follow pt during her stay on this unit.
--- NOTE | 2019-07-05 14:26 | NUR ---
PT TOOK LORAZEPAM THIS AFTERNOON WITHOUT ANY ISSUES. PT HAD FRESH TEA MADE FROM SENIOR BUSINESS ANALYST AND THIS INTERNATIONAL RELATIONS PROFESSOR PUT LACTULOSE AND HALDOL IN HOT TEA BEFORE PUTTING IT IN ICE.
--- NOTE | 2019-07-05 16:10 | NUR ---
PT WHEELED OUT TO ROOM FOR LAB DRAW. PT DID TRY TO HIT TALENT MANAGEMENT MANAGER. DISTRACTED PT WITH WARM WASH RAG TO FACE AND CLEANING FACE. PT WAS COMPLIANT WITH LAB DRAW. PT HAS NOT BEEN YELLING OUT THIS MUCH TODAY, MAYBE TWICE. PT STILL HESITATE TO OTHER INDIVIDUALS.
[2019-07-05 16:32] LABS: HEMATOCRIT 35.5 % (37.0-47.0); MCH 30.4 pg (26.0-34.0); MCHC 33.7 g/dL (28.0-37.0); MCV 90.2 fL (80.0-100.0); RBC 3.94 mil/uL (4.20-5.00); RDW 13.7 % (10.5-14.5)
[2019-07-05 16:50] LABS: ALBUMIN 2.6 g/dL (3.4-5.0); CREATININE 0.8 mg/dL (0.6-1.0); POTASSIUM 3.6 mmol/L (3.5-5.1); TOTAL BILIRUBIN 1.3 mg/dL (<0.1-1.0); TOTAL PROTEIN 6.8 g/dL (6.4-8.2)
[2019-07-05 19:30] VITALS: BP 116/69
--- NOTE | 2019-07-06 04:39 | NUR ---
Assumed care of pt @ 1900. Pt slightly agitated at beginning of shift. Pt yelling out in dayrrom. Pt refused all HS meds so was given Haldol injection per protocol. Pt c/o "itchy feet". Lotion applied et socks placed over lotion. Pt kept yelling for "comforter" but only thin blankets in her room. VSWNL. Health assessment with no abnormalities other than noted prior. Pt did not have any further behaviors after being assisted to bed. Currently resting in bed with eyes closed. Will continue to monitor per protocol.
--- NOTE | 2019-07-06 08:07 | EKG ---
[facility] [place] [address] ELECTROCARDIOGRAM REPORT Name: LILIYA VILLARREAL Room #: [facility] ADM IN M.R.#: [id number] Admission: 06/18/19 Attend Phys: John Watts DO Discharge: Date of : 56 Report #: [id number] THIS REPORT FOR: cc: AMADO - No family physician/PCP AMADO - No family physician/PCP Doug Stevens MD [facility] ~ THIS REPORT FOR: //name// [facility] Test Date: 2019-07-05 Test Time: 17:58:41 Pat Name: LILIYA VILLARREAL Department: Room: [facility] Gender: F Pipe Maker: Sal PEACE : 1960 Requested By: Ana Rosa Coffey Order Number: [id number] MD: Doug Stevens Measurements Intervals [place]ley Rate: 88 P: 61 WA: 132 QRS: -2 QRSD: 113 T: 54 QT: 395 QTc: 478 Interpretive Statements Sinus rhythm Abnormal R-wave progression, early transition Compared to ECG 06/19/2019 17:19:59 No significant change was found Electronically Signed On 07-06-2019 8:06:30 PROPERTY SPECIALIST by Doug Stevens [email or web address] <ELECTRONICALLY SIGNED> By: Doug Stevens MD, FAC 07/06/19 0806 [id number] Doug Stevens MD, FAC /EPI
[2019-07-06 08:20] VITALS: BP 115/75
[2019-07-06 08:42] VITALS: BP 137/86
--- NOTE | 2019-07-06 08:45 | NUR ---
PT SITTING OUT IN DINNING AREA THIS AM. PT YELLING AT STAFF WITH CERTAIN INDIVIDUALS. PT FEEDING SELF BREAKFAST. PT WANTING TEA TO DRINK, THIS BOAT AND PLANT UTILITY SUPERVISOR MADE TEA AND PUT HALDOL IN HOT TEA. PT DID TAKE PO MEDS.
[2019-07-06] MEDS ORDERED: INDERAL LA60 MG PO (11:13)
[2019-07-06] MEDS ORDERED: EXTRA STRENGTH85 GM TOP (11:13)
[2019-07-06] MEDS ORDERED: HALOPERIDOL 5 MG5 MG PO ×2 (11:13)
[2019-07-06] MEDS ORDERED: LACTULOSE20 GM/30 M PO (11:13)
[2019-07-06] MEDS ORDERED: BENZTROPINE2 MG/2 ML IM (11:13)
[2019-07-06] MEDS ORDERED: HALOPERIDOL5 MG/1 ML IM (11:13)
[2019-07-06] MEDS ORDERED: HALOPERIDO50 MG/1 M1 IM (11:13)
[2019-07-06] MEDS ORDERED: TYLENOL325 MG PO (11:13)
[2019-07-06] MEDS ORDERED: VITAMIN D325 MCG PO (11:13)
[2019-07-06] MEDS ORDERED: LORAZEPAM 22 MG/1 ML IM (11:13)
[2019-07-06] MEDS ORDERED: LORAZEPAM 1 MG T1 MG PO (11:13)
[2019-07-06] MEDS ORDERED: XIFAXAN550 MG PO (11:13)
[2019-07-06] MEDS ORDERED: TRAZODONE 150150 M1 PO (11:14)
--- NOTE | 2019-07-06 11:30 | NUR ---
PT CHANGED AND LEFT VIA W/C TO [facility] FOR RESTOR[facility] CARE.
--- NOTE | 2019-07-06 13:00 | NUR ---
GAVE REPORT TO KHALIDA MERCHANT AT [employer].
--- NOTE | 2019-07-06 14:38 | NUR ---
ANANYA D/C note SW faxed discharge docs to pt's P.A[facility] Guardian. Discharge docs were also faxed to pt's facility, the confirmation given to her, and hard copies sent with her to her facility. No other needs for SW team to address at this time.
== END 2019-07-06 11:30 | DRG 885 ==
LOC: SBH
PROVIDERS: Hospitalist; Internal Medicine; Nurse Practitioner Family; ADMIT Psychiatry & Neurology Psychiatry
DX: F20.0 Paranoid schizophrenia (principal); F01.51 Vascular dementia, unspecified severity, with behavioral disturbance; G30.9 Alzheimer's disease, unspecified; K70.30 Alcoholic cirrhosis of liver without ascites; E11.42 Type 2 diabetes mellitus with diabetic polyneuropathy; I10 Essential (primary) hypertension; D63.8 Anemia in other chronic diseases classified elsewhere; E55.9 Vitamin D deficiency, unspecified; R00.0 Tachycardia, unspecified; M19.90 Unspecified osteoarthritis, unspecified site; K21.9 Gastro-esophageal reflux disease without esophagitis; F41.9 Anxiety disorder, unspecified; I87.2 Venous insufficiency (chronic) (peripheral); E78.5 Hyperlipidemia, unspecified; Z79.899 Other long term (current) drug therapy
CPT/HCPCS: 10880